=== PATIENT | female | born 1995 | race Caucasian/White ===

== ENCOUNTER 2023-02-12 04:01 | Inpatient (IN) ==
[2023-02-12] MEDS ORDERED: OXYTOCIN 30 UNITS/500 ML BAG IV PRN ×3 (04:50→14:13)
[2023-02-12] MEDS ORDERED: LIDOCAINE 1% LOCAL 20 ML VIAL INFIL PRN (04:50)
[2023-02-12 05:56] LABS: Hematocrit (blood only) 33.8 % (37.0-47.0); Hemoglobin 11.5 g/dl (12.0-16.0); Mean Corpuscular Hemoglobin 29.5 pg (25.0-34.0); Mean Corpuscular Volume 86.7 fL (80.0-100.0); Mean Platelet Volume 12.4 fL (9.4-12.4); Platelet Count 188 K/uL (130-400); RDW Coefficient of Variation 13.7 % (11.5-14.5); RDW Standard Deviation 42.6 fL (36.4-46.3); White Blood Count 12.13 K/ul (4.8-10.8)
[2023-02-12] MEDS: LACTATED RINGER'S 1,000 ML IV PRN ×2 (06:24→09:02)
[2023-02-12] MEDS ORDERED: SODIUM CHLORIDE 0.9% PF INJ 10 ML VIAL ONE (06:31)
[2023-02-12] MEDS ORDERED: fentaNYL citrate PF 100 MCG/2 ML VIAL ONE (06:31)
[2023-02-12] MEDS ORDERED: ePHEDrine sulfate 50 MG/ML AMP ONE (06:31)
[2023-02-12] MEDS ORDERED: BUPIVACAINE 0.25% PF 30 ML VIAL ONE (06:31)
[2023-02-12] MEDS ORDERED: LIDOCAINE 2%/EPINEPHRINE 1:200,000 20 ML PF ONE (06:31)
[2023-02-12] MEDS ORDERED: fentaNYL 2MCG/ML ROPIVACAINE 1.25MG/ML 100 ML BAG EPI ONE (06:32)
--- NOTE | 2023-02-12 07:14 | History & Physical Report ---
Date of Service February 12, 2023 Assessment & Plan (1) PROM (premature rupture of membranes): (2) 40 weeks gestation of : Plan admit for prom. plan expectant management for now. fetus category one. epidural on demand. anticipate . Admission and Anticipated Discharge Date Admission Date: February 12, 2023 History of Present Illness Chief Complaint: rom Primary Care Provider: Linda Valerio PA-C Patient is a with iup at 40 0/7 weeks who called complaining of rom. some cramping, no vb. +fm. Recently in labor and delivery to r/o labor and sent home with cx of 2cm and Delivery Plans Covid Vaccine x 3 (Moderna) OB Labs: Blood Type AB Positive 07/11/22 Antibody Screen NEGATIVE 07/11/22 Hemoglobin 10.7 g/dl (12.0-16.0) L 11/22/22 Hematocrit 31.5 % (34.1-44.9) L 11/22/22 Mean Corpuscular Volume 89.2 fL (80.0-100.0) 07/11/22 Platelet Count 209 K/uL (130-400) 07/11/22 Rubella IgG Antibody Immune (Immune) 07/11/22 Rapid Plasma Reagin Nonreactive (Nonreactive) 07/11/22 Hepatitis B Surface Antigen. NON-REACTIVE (NON-REACTIVE) 07/11/22 Hepatitis C Antibody (EIA) NON-REACTIVE (NON-REACTIVE) 07/11/22 HIV (1&2) Ag and Ab Confirmation NON-REACTIVE (NON-REACTIVE) 07/11/22 Glucose 1 Hour 50 gm Load 93 mg/dl (70-130) 11/22/22 Maternal Serum Alpha Fetoprotein 24.5 ng/mL 08/29/22 OB Optional Labs: Chlamydia trachomatis RNA NOT DETECTED (NOT DETECTED) 07/11/22 Neisseria gonorrhoeae RNA NOT DETECTED (NOT DETECTED) 07/11/22 Alpha Fetoprotein Triple Screen SEE NOTE 08/29/22 Labs Reviewed: cf/sma-negative--mln cfdna-low risk--mln neg afp - sln gbs neg Allergies Allergy/AdvReac Type Severity Reaction Status Date / Time No Known Drug Allergies Allergy Verified 02/06/23 08:46 Home Medications Medication Instructions Recorded Confirmed Type escitalopram oxalate 10 mg tablet 10 mg PO DAILY 11/30/21 02/12/23 History (Lexapro) prenat.vits,miri,ycr-azcs-aywkz 1 tab PO DAILY 07/04/22 02/12/23 History ferrous sulfate 325 mg (65 mg 325 mg PO Q OTHER DAY 02/12/23 02/12/23 History iron) tablet (iron) Patient History Medical History Anxiety Surgical History History of wisdom tooth extraction 2009 Family History Father Asthma Hypertension Other No family history of adverse response to anesthesia No family history of bleeding disorder Denies family history of Ovarian cancer Breast cancer Colorectal cancer Uterine cancer Social History Smoking Status: Never smoker Second Hand Exposure: No; Hx Alcohol Use: No Hx Substance Use: No Preferred Language: Spanish Communication Ability: Effective 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
[2023-02-12] MEDS ORDERED: ONDANSETRON INJ 2 MG/ML 2 ML VIAL IV PRN (07:26)
[2023-02-12] MEDS ORDERED: NALOXONE HCL 0.4 MG/1 ML VIAL/CARP IV PRN (07:26)
[2023-02-12] MEDS ORDERED: NALBUPHINE HCL INJ 10 MG/ML AMP IV PRN (07:26)
[2023-02-12] MEDS ORDERED: NALOXONE HCL 1 MG in SODIUM CHLORIDE 0.9% 1000ML 1,000 ML IV PRN (07:26)
[2023-02-12] MEDS ORDERED: diphenhydrAMINE 50 MG/ML VIAL IV PRN (07:26)
[2023-02-12] MEDS ORDERED: fentaNYL 2MCG/ML ROPIVACAINE 1.25MG/ML 100 ML BAG EPI PRN (07:26)
[2023-02-12] MEDS ORDERED: ePHEDrine sulfate 50 MG/ML AMP IV PRN (07:26)
--- NOTE | 2023-02-12 07:27 | Anesthesiology Consultation ---
Date of Service February 12, 2023 Assessment & Plan Chart Review Chart Review: Patient NOT seen in Pre Admission Testing and Acceptable Risk for Labor Epidural Consults Requested none ASA ASA2 Proposed Anesthesia Anesthesia Type: Labor Epidural Risk / Benefits Reviewed With: PT / POA / Parent / Guardian, Accepts Plan and Informed Consent Obtained History Height/Weight Height: 5 ft 8 in Weight: 83.461 kg Allergies Allergy/AdvReac Type Severity Reaction Status Date / Time No Known Drug Allergies Allergy Verified 02/06/23 08:46 Medications Home Medications Medication Instructions Recorded Confirmed Last Taken escitalopram oxalate 10 mg tablet 10 mg PO DAILY 11/30/21 02/12/23 02/11/23 (Lexapro) prenat.vits,miri,bsv-ncvy-ecgkj 1 tab PO DAILY 07/04/22 02/12/23 02/12/23 ferrous sulfate 325 mg (65 mg 325 mg PO Q OTHER DAY 02/12/23 02/12/23 02/11/23 iron) tablet (iron) Active Medications Generic Name Dose Route Start Last Admin Trade Name Freq PRN Reason Stop Dose Admin Lactated Ringer's 1,000 mls @ 125 mls/hr 02/12/23 04:50 02/12/23 06:54 Lr IV 02/14/23 04:49 125 mls/hr .Q8H PRN Infusion L&D Protocol Protocol Past Medical History Medical History Anxiety Exercise / Class Metabolic Activity II 4-5 Yardwork/Stairs/Walk up hill Past Family History Family History Father Asthma Hypertension Other No family history of adverse response to anesthesia No family history of bleeding disorder Denies family history of Ovarian cancer Breast cancer Colorectal cancer Uterine cancer Past Surgical History Surgical History History of wisdom tooth extraction 2009 Past Anesthesia History No Hx of Anesthesia Complications and No Family Hx of Anesthesia Complications History of PONV No Hx of PONV and No Hx of Motion Sickness Social History Smoking Status: Never smoker Hx Alcohol Use: No Hx Substance Use: No Physical Exam Vital Signs Last Vital Signs Temp 36.6 C 02/12/23 04:28 Pulse 103 H 03/19/23 04:54 Resp 18 02/12/23 04:28 BP 126/72 02/12/23 04:54 ENMT Mouth: no dentition abnormality Thyromental Distance: > or= 3.5 Finger Breadths Mallampati Class: II Neck normal visual inspection Respiratory normal respiratory effort Auscultation: lungs clear to auscultation bilaterally Cardiovascular Rate/Rhythm: regular rate and regular rhythm Psychiatric Orientation: alert Testing Laboratory Results 02/12/23 05:15
[2023-02-12] MEDS ORDERED: METHYLERGONOVINE MALEATE 0.2 MG/ML AMP ONE (14:10)
[2023-02-12] MEDS ORDERED: BENZOCAINE 20% AER SPR 82.5 GM CAN EXT PRN (14:13)
[2023-02-12] MEDS ORDERED: HYDROCORTISONE ACETATE 25 MG SUPP PR PRN (14:13)
[2023-02-12] MEDS ORDERED: oxyCODONE/ACETAMINOPHEN 5mg/325mg TAB PO PRN (14:13)
[2023-02-12] MEDS ORDERED: ACETAMINOPHEN 325 MG TAB PO PRN (14:13)
[2023-02-12] MEDS ORDERED: DIPHTHERIA/TETANUS/PERTUSSIS 0.5mL SYR/VIAL (Age 7+yrs) IM ONE (14:13)
[2023-02-12] MEDS ORDERED: METHYLERGONOVINE MALEATE 0.2 MG/ML AMP IM ONE (14:13)
[2023-02-12] MEDS ORDERED: bisacodyL 10 MG SUPP PR PRN (14:13)
--- NOTE | 2023-02-12 14:17 | Delivery Summary ---
Vaginal Delivery Summary Date of Service February 12, 2023 Vaginal Delivery Summary and 2nd Degree LAC Pre-operative Diagnosis: at 40 weeks srom labor Post-operative Diagnosis: same Procedure: epidural repair of second degree laceration EBL: 400cc Anesthesia: epidural Procedure: Patient presented to labor with srom and early labor. She progressed spontaneously after epidural jordi c/c +3. The patient pushed for a little over an hour to deliver a viable female in lizbeth position. The anterior shoulder was delivered and the rest of the was then delivered without difficulty. The baby was vigorous. The nose and mouth were bulb sucti oned and the was placed in the maternal abdomen for drying and attention. Cord was clamped and cut at one minute of life. Cord blood and segment obtained. Placenta delivered spontaneous, intact with a three vessel cord. Cervix/sulci/rectum were intact. A second degree perineal laceration was repaired in the normal standard fashion. Hemostasis obtained with dilute pitocin, methergine and fundal massage. Apgars were 8/9. Mother and baby doing well at the end of the delivery[place] [facility] [place] [facility] [place] Charge Delivery Type Details: and 2nd Degree LAC
--- NOTE | 2023-02-12 16:11 | Anesthesia Procedure Note ---
Date of Service February 12, 2023 Anesthesia Post Epidural Note Vital Signs Vital Signs: Temp Pulse Resp BP Pulse Ox 37.0 C 102 H 20 134/66 96 02/12/23 12:05 02/12/23 16:01 02/12/23 14:15 02/12/23 16:01 02/12/23 13:54 Notes Mental Status: alert / awake / arousable Nausea / Vomiting: adequately controlled Pain: adequately controlled Airway Patency, RR, SpO2: stable & adequate BP & HR: stable & adequate Hydration State: stable & adequate Neuraxial Anesthesia: was administered and sensory block is resolving Anesthetic Complications: no major complications apparent Epidural: Removed without complications and With tip intact
[2023-02-12] MEDS: IBUPROFEN 600 MG TAB PO PRN (16:40)
[2023-02-12] MEDS: DOCUSATE SODIUM 100 MG CAP PO SCH (20:53)
[2023-02-13] MEDS: IBUPROFEN 600 MG TAB PO PRN ×4 (01:11→20:21)
--- NOTE | 2023-02-13 05:49 | Obstetrical Progress Note ---
Date of Service <Terra Pyle - Last Filed: 02/13/23 06:37> February 13, 2023 Assessment & Plan <Terra PyleDO - Last Filed: 02/13/23 06:37> (1) Status post vaginal delivery: continue OOB, ambulation, diet as tolerated - 6 week post f/u <Mercedes Palmer MD, FACOG - Last Filed: 02/13/23 07:14> (1) Status post vaginal delivery: Subjective <Terra PyleDO - Last Filed: 02/13/23 06:37> Sirisha is a 27 y/o female who is now PPD # 1 following vaginal delivery at 40 0/7 weeks. Reports feeling well overall this morning. Mild abdominal cramping well managed on analgesics. Voiding. Tolerating meals overnight and able to ambulate some. Some persistent lochia with some improvement this morning. Bottle feeding. Notes that she is having numbness/tingling over left LE from knee down anteriorly. Also notes some subjective weakness. Started within a few hours after delivery. Did have an epidural. Review of Systems Denies fever, chills, sweats Denies shortness of breath, difficulty breathing, chest pain, palpitations, chest pressure. Denies breast pain. Denies dysuria. Denies headache or changes in vision. Physical Exam <Terra PyleDO - Last Filed: 02/13/23 06:37> General: Alert, oriented. No acute distress. Cardiac: Regular rate and rhythm, no murmurs/rubs/gallops. Respiratory: Clear to auscultation bilaterally a/p, no wheezes/rales/rhonchi. No increased work of breathing. Symmetrical chest rise. No respiratory distress. Abdomen: Soft, nontender, nondistended. Uterus: Uterine fundus firm, palpable 3 cm below umbilicus. Lower Extremities: No lower extremity edema or swelling. Results & Data <Terra PyleDO - Last Filed: 02/13/23 06:37> Vital Signs (Past 12 Hours) Vital Signs Temp Pulse Resp BP Pulse Ox O2 Del Method 02/13/23 04:07 36.4 C L 93 H 16 117/72 98 Room Air 02/12/23 23:35 36.6 C 102 H 16 118/72 98 Room Air 02/12/23 19:45 36.6 C 97 H 16 121/78 98 Room Air 02/12/23 17:50 36.7 C 88 18 122/82 Room Air <Mercedes Palmer MD, FACOG - Last Filed: 02/13/23 07:14> Co-Signing Physician Notes Resident Physician Supervision Note: I interviewed and examined the patient. Discussed with Dr. Pyle and agree with findings and plan as documented in the note. Any exceptions or clarifications are listed here: Patient doing well PP. Patient notes she has some tingling and decreased sensation over the ant left calf, ? a bit of weakness subjectively. Will have anesthesia stop by, however, may be from hyperextension of the leg and compression during pushing. Reassured. Monitor today. Documented By: Mercedes Palmer MD, FACOG Resident Activity Tracking <Terra Pyle, DO - Last Filed: 02/13/23 06:37> Resident Involvement: Resident Care Provided Care Provided: OB Delivery (post )
[2023-02-13] MEDS: DOCUSATE SODIUM 100 MG CAP PO SCH ×2 (07:41→20:21)
[2023-02-13] MEDS: PRENATAL VITAMIN 1 TAB PO SCH (07:41)
[2023-02-13] MEDS: ESCITALOPRAM OXALATE 10 MG TAB PO SCH (07:41)
--- NOTE | 2023-02-13 09:36 | Anesthesiology Progress Note ---
Date of Service February 13, 2023 Anesthesia Post Procedure Vital Signs Vital Signs: Temp Pulse Pulse Resp BP BP Pulse Ox 02/13/23 07:20 36.7 C 89 18 116/74 98 02/13/23 04:07 36.4 C L 93 H 16 117/72 98 02/12/23 23:35 36.6 C 102 H 16 118/72 98 02/12/23 19:45 36.6 C 97 H 16 121/78 98 02/12/23 17:50 36.7 C 88 18 122/82 02/12/23 15:50 20 02/12/23 14:15 20 02/12/23 16:46 112 H 135/65 02/12/23 16:31 100 H 132/64 02/12/23 16:21 85 130/60 02/12/23 16:16 108 H 169/81 H 02/12/23 16:01 102 H 134/66 02/12/23 15:46 102 H 128/60 02/12/23 12:36 20 02/12/23 12:36 20 02/12/23 13:06 20 02/12/23 13:06 20 02/12/23 13:36 22 02/12/23 13:36 22 02/12/23 15:31 112 H 118/57 L 02/12/23 15:16 115 H 140/63 02/12/23 15:01 103 H 113/62 02/12/23 14:46 115 H 119/59 L 02/12/23 14:31 110 H 110/57 L 02/12/23 14:16 141 H 123/60 02/12/23 14:04 121 H 138/67 02/12/23 13:54 171 H 96 02/12/23 13:53 147 H 88 L 02/12/23 13:49 144 H 97 02/12/23 13:50 133 H 134/75 02/12/23 13:47 143 H 89 L 02/12/23 13:44 132 H 97 02/12/23 13:41 130 H 87 L 02/12/23 13:39 133 H 97 02/12/23 13:35 129 H 117/56 L 02/12/23 13:34 142 H 97 02/12/23 13:29 98 02/12/23 13:29 152 H 02/12/23 13:29 127 H 88 L 02/12/23 13:24 127 H 90 02/12/23 13:22 134 H 89 L 02/12/23 13:20 131 H 121/63 02/12/23 13:19 143 H 96 02/12/23 13:17 127 H 91 02/12/23 13:14 123 H 100 02/12/23 13:10 121 H 89 L 02/12/23 13:09 124 H 100 02/12/23 13:05 126 H 120/60 02/12/23 13:04 130 H 99 02/12/23 13:03 128 H 89 L 02/12/23 12:59 134 H 99 02/12/23 12:57 137 H 87 L 02/12/23 12:54 128 H 99 02/12/23 12:52 123 H 92 02/12/23 12:51 151 H 118/58 L 02/12/23 12:49 134 H 99 02/12/23 12:46 121 H 86 L 02/12/23 12:44 137 H 99 02/12/23 12:41 120 H 89 L 02/12/23 12:39 116 H 100 02/12/23 12:35 134 H 112/62 02/12/23 12:33 110 H 100 02/12/23 12:28 114 H 100 02/12/23 12:23 108 H 100 02/12/23 12:20 106 H 120/72 02/12/23 12:18 110 H 100 02/12/23 12:13 132 H 96 02/12/23 12:08 101 H 100 02/12/23 12:05 37.0 C 111 H 18 110/64 02/12/23 12:03 96 H 100 02/12/23 11:58 103 H 100 02/12/23 11:53 115 H 100 02/12/23 11:48 113 H 99 02/12/23 11:49 113 H 101/59 L 02/12/23 11:20 20 02/12/23 11:20 20 02/12/23 11:46 20 02/12/23 11:46 20 02/12/23 11:43 111 H 100 02/12/23 11:38 123 H 100 02/12/23 11:34 125 H 100/56 L 02/12/23 11:33 118 H 93 02/12/23 11:29 135 H 92 02/12/23 11:28 125 H 100 02/12/23 11:23 115 H 100 02/12/23 11:21 118 H 94/50 L 02/12/23 10:50 18 02/12/23 10:50 36.9 C 18 02/12/23 10:20 20 02/12/23 10:20 20 02/12/23 10:35 20 02/12/23 10:35 20 02/12/23 11:18 121 H 100 02/12/23 11:13 122 H 96 02/12/23 11:08 107 H 100 02/12/23 11:05 120 H 18 98/54 L 02/12/23 11:03 121 H 99 02/12/23 10:58 121 H 100 02/12/23 10:57 141 H 89 L 02/12/23 10:56 105 H 95/58 L 02/12/23 10:54 153 H 82/48 L 02/12/23 10:53 132 H 100 02/12/23 10:52 116 H 93 02/12/23 10:51 121 H 86/52 L 02/12/23 10:48 132 H 100 02/12/23 10:43 133 H 100 02/12/23 10:38 117 H 100 02/12/23 10:36 98 H 109/61 02/12/23 10:33 102 H 100 02/12/23 10:28 104 H 100 02/12/23 10:25 113 H 92 02/12/23 10:23 97 H 100 02/12/23 10:21 101 H 112/64 02/12/23 10:05 20 02/12/23 10:05 20 02/12/23 10:18 97 H 100 02/12/23 10:13 95 H 100 02/12/23 10:06 113 H 107/64 02/12/23 10:03 126 H 100 02/12/23 10:01 105 H 91 02/12/23 09:58 99 H 100 02/12/23 09:35 20 02/12/23 09:35 20 02/12/23 09:50 20 02/12/23 09:50 37.0 C 20 02/12/23 09:53 101 H 100 02/12/23 09:49 90 96/50 L 02/12/23 09:48 93 H 100 02/12/23 09:43 92 H 100 02/12/23 09:38 98 H 100 02/12/23 09:33 94 H 100 02/12/23 09:34 93 H 106/64 O2 Del Method 02/13/23 07:20 Room Air 02/13/23 04:07 Room Air 02/12/23 23:35 Room Air 02/12/23 19:45 Room Air 02/12/23 17:50 Room Air 02/12/23 15:50 02/12/23 14:15 02/12/23 16:46 02/12/23 16:31 02/12/23 16:21 02/12/23 16:16 02/12/23 16:01 02/12/23 15:46 02/12/23 12:36 02/12/23 12:36 02/12/23 13:06 02/12/23 13:06 02/12/23 13:36 02/12/23 13:36 02/12/23 15:31 02/12/23 15:16 02/12/23 15:01 02/12/23 14:46 02/12/23 14:31 02/12/23 14:16 02/12/23 14:04 02/12/23 13:54 02/12/23 13:53 02/12/23 13:49 02/12/23 13:50 02/12/23 13:47 02/12/23 13:44 02/12/23 13:41 02/12/23 13:39 02/12/23 13:35 02/12/23 13:34 02/12/23 13:29 02/12/23 13:29 02/12/23 13:29 02/12/23 13:24 02/12/23 13:22 02/12/23 13:20 02/12/23 13:19 02/12/23 13:17 02/12/23 13:14 02/12/23 13:10 02/12/23 13:09 02/12/23 13:05 02/12/23 13:04 02/12/23 13:03 02/12/23 12:59 02/12/23 12:57 02/12/23 12:54 02/12/23 12:52 02/12/23 12:51 02/12/23 12:49 02/12/23 12:46 02/12/23 12:44 02/12/23 12:41 02/12/23 12:39 02/12/23 12:35 02/12/23 12:33 02/12/23 12:28 02/12/23 12:23 02/12/23 12:20 02/12/23 12:18 02/12/23 12:13 02/12/23 12:08 02/12/23 12:05 02/12/23 12:03 02/12/23 11:58 02/12/23 11:53 02/12/23 11:48 02/12/23 11:49 02/12/23 11:20 02/12/23 11:20 02/12/23 11:46 02/12/23 11:46 02/12/23 11:43 02/12/23 11:38 02/12/23 11:34 02/12/23 11:33 02/12/23 11:29 02/12/23 11:28 02/12/23 11:23 02/12/23 11:21 02/12/23 10:50 02/12/23 10:50 02/12/23 10:20 02/12/23 10:20 02/12/23 10:35 02/12/23 10:35 02/12/23 11:18 02/12/23 11:13 02/12/23 11:08 02/12/23 11:05 02/12/23 11:03 02/12/23 10:58 02/12/23 10:57 02/12/23 10:56 02/12/23 10:54 02/12/23 10:53 02/12/23 10:52 02/12/23 10:51 02/12/23 10:48 02/12/23 10:43 02/12/23 10:38 02/12/23 10:36 02/12/23 10:33 02/12/23 10:28 02/12/23 10:25 02/12/23 10:23 02/12/23 10:21 02/12/23 10:05 02/12/23 10:05 02/12/23 10:18 02/12/23 10:13 02/12/23 10:06 02/12/23 10:03 02/12/23 10:01 02/12/23 09:58 02/12/23 09:35 02/12/23 09:35 02/12/23 09:50 02/12/23 09:50 02/12/23 09:53 02/12/23 09:49 02/12/23 09:48 02/12/23 09:43 02/12/23 09:38 02/12/23 09:33 02/12/23 09:34 Pain Intensity Lower Abdomen: Pain Intensity: 4 Transfer of Care Handoff Completed per policy Notes Mental Status: alert / awake / arousable Patient Amnestic to Procedure: Yes Nausea / Vomiting: adequately controlled Pain: adequately controlled Airway Patency, RR, SpO2: stable & adequate BP & HR: stable & adequate Hydration State: stable & adequate Neuraxial Anesthesia: sensory block resolved Anesthetic Complications: no major complications apparent Notes: asked to see patient re: left lower leg numbness and tingling since soon after delivery. Pushed 1.5 hours, other leg without symptoms. otherwise doing well. reassured her that it is most likely from nerve compression or stretching from lithotomy/head in pelvis and that it would be unlikely that an epidural could cause such focused symptoms but that she should keep her care team apprised of changes and we are available if further issues arise.
[2023-02-13] MEDS ORDERED: bisacodyL 5 MG TABEC PO SCH (20:00)
[2023-02-14] MEDS: IBUPROFEN 600 MG TAB PO PRN ×3 (00:43→11:42)
--- NOTE | 2023-02-14 06:52 | Obstetrical Progress Note ---
Date of Service <Terra PyleDO - Last Filed: 02/14/23 07:47> February 14, 2023 Assessment & Plan <Terra PyleDO - Last Filed: 02/14/23 07:47> (1) Status post vaginal delivery: continue OOB, ambulation, diet as tolerated - 6 week post f/u - Anesthesiology saw pt yesterday and felt numbness was likely secondary to nerve compression with pushing, will likely improve over the next couple of weeks <Demarcus Posey MD - Last Filed: 02/14/23 08:20> (1) Status post vaginal delivery: Subjective <Terra Pyle DO - Last Filed: 02/14/23 07:47> Sirisha is a 27 y/o female who is now PPD # 2 following vaginal delivery at 40 0/7 weeks. Reports feeling well overall this morning. Mild abdominal cramping well managed on analgesics. Voiding. Tolerating meals overnight and able to ambulate some. Some persistent lochia with some improvement this morning. Bottle feeding. Notes that she is having numbness/tingling over left LE from knee down anteriorly, has not changed from yesterday. Review of Systems Denies fever, chills, sweats Denies shortness of breath, difficulty breathing, chest pain, palpitations, chest pressure. Denies breast pain. Denies dysuria. Denies headache or changes in vision. Physical Exam <Terra PyleDO - Last Filed: 02/14/23 07:47> General: Alert, oriented. No acute distress. Cardiac: Regular rate and rhythm, no murmurs/rubs/gallops. Respiratory: Clear to auscultation bilaterally a/p, no wheezes/rales/rhonchi. No increased work of breathing. Symmetrical chest rise. No respiratory distress. Abdomen: Soft, nontender, nondistended. Uterus: Uterine fundus firm, palpable 3 cm below umbilicus. Lower Extremities: No lower extremity edema or swelling. Results & Data <Terra PyleDO - Last Filed: 02/14/23 07:47> Vital Signs (Past 12 Hours) Vital Signs Temp Pulse Resp BP 02/14/23 00:30 36.5 C 89 18 119/71 02/13/23 20:25 36.6 C 88 18 136/82 <Demarcus Posey MD - Last Filed: 02/14/23 08:20> Co-Signing Physician Notes patient seen and evaluated with resident and agree with the above findings and plan. Patient stable for discharge. Resident Activity Tracking <Terra Pyle DO - Last Filed: 02/14/23 07:47> Resident Involvement: Resident Care Provided Care Provided: OB Delivery (post )
[2023-02-14] MEDS: DOCUSATE SODIUM 100 MG CAP PO SCH (08:19)
[2023-02-14] MEDS: PRENATAL VITAMIN 1 TAB PO SCH (08:19)
[2023-02-14] MEDS: ESCITALOPRAM OXALATE 10 MG TAB PO SCH (08:19)
== END 2023-02-14 12:10 | disposition home or self-care (01) | DRG 807 ==
LOC: OPB 04:01 → 4S1 04:03 → 4E2 17:31